=== PATIENT | female | born 1930 | race Caucasian/White ===

== ENCOUNTER → 2018-03-20 | Outpatient (CLI) | payer MEDICARE ==
[~2018-03-20] MED LIST: ALPR-460 PO; ASPI81TA94 PO; CALC500T6 PO; CHOL400T24 PO; CYAN1TAB68 PO; ENAL20TA99 PO; EZET10TA41 PO; GARL1CAP15 PO; LACT1CAP6 PO; LORA-788 PO; PNEU0.5D3 IM; POTA2TAB29 PO; PYRI50CA PO; SIMV5TAB60 PO; VIT-7 PO; [UNRECOGNIZED DRUG - CODE] PO
--- NOTE | 2018-03-20 13:36 | RADIOLOGY IMAGING REPORT ---
FACILITY: [facility] PATIENT NAME: Adonis Delarosa : 1930 MR: [id number] V: [id number] EXAM DATE: ORDERING PHYSICIAN: PILY NELSON TECHNOLOGIST: Location: [facility] - [place], [place] Patient: Adonis Delarosa : 1930 Visit/Account:[id number] Date of Sevice: 03/20/2018 Exam type: KUB SINGLE VIEW ABDOMEN History: Constipation, left lower quadrant pain Comparison: None. Findings: There are surgical clips in right upper quadrant abdomen. The bowel gas pattern is nonspecific. The re is no gross evidence of organomegaly. There Is a levoconvex scoliosis lumbar spine with moderate spondylotic changes. Multiple calcifications within the pelvis may represent phleboliths. IMPRESSION: 1. Nonspecific bowel gas pattern Report Dictated By: Cira Aguirre MD at 03/20/2018 1:30 PM Report E-Signed By: Ciar Aguirre MD at 03/20/2018 1:31 PM WSN:[id number]
== END ==
LOC: RAD 12:10
PROVIDERS: ATTEND Family Medicine
DX: K59.00 Constipation, unspecified (principal)
CPT/HCPCS: 74018

== ENCOUNTER → 2018-04-22 | Outpatient (CLI) | payer MEDICARE | LOC: ZZSPRING 01:26 | PROVIDERS: ATTEND Family Medicine | DX: I10 Essential (primary) hypertension (principal) | CPT/HCPCS: 36415; 82310; 82374; 82435; 82565; 82947; 84132; 84295; 84520 ==

== ENCOUNTER → 2018-05-13 | Outpatient (CLI) | payer MEDICARE | LOC: ZZSPRING 01:37 | PROVIDERS: ATTEND Family Medicine | DX: I10 Essential (primary) hypertension (principal) | CPT/HCPCS: 36415; 82310; 82374; 82435; 82565; 82947; 84132; 84295; 84520 ==